=== PATIENT | female | born 1975 | race Caucasian/White ===

== ENCOUNTER 2021-02-01 12:37 | Emergency (ER) | payer OTHER, SELFPAY ==
--- NOTE | ~2021-02-01 | XR_ITS ---
EXAMINATION: XR HAND, LEFT CLINICAL INFORMATION: Left index laceration/trauma. COMPARISON: None TECHNIQUE: PA, lateral, and oblique views of the left hand. FINDINGS: There is soft tissue edema and overlying external covering material at about the second digit. There is no evidence of acute fractures or malalignment. Joint spaces are in anatomic. XR/XR hand LT min 3V IMPRESSION: No acute fractures or malalignment.
[2021-02-01 13:35] VITALS: BP 125/60; PULSE 85; RESP 18; TEMP 36.5; O2SAT 98; BMI 28.0
[2021-02-01] MEDS: Ibuprofen 600 MG TABLET PO (13:39)
--- NOTE | 2021-02-01 15:17 | ED.WOUNDLAC ---
HPI - Wound/Laceration General Chief Complaint: Wound/Laceration Stated Complaint: FINGER LACERATION WORK RELATED Time Seen by Provider: 02/01/21 13:07 Source: patient Mode of arrival: ambulatory Limitations: no limitations History of Present Illness HPI narrative: Patient was at work cutting [employer] when she cut her left index finger. Patient is cook. Patient reports that she had tetanus shot about 3 months ago. Patient denies any other symptoms. Ibuprofen ordered in triage. Bleeding is under control. Related Data Previous Rx's Medication Instructions Recorded cephalexin 500 mg capsule 500 mg PO QID 5 Days #20 cap 02/01/21 ibuprofen 600 mg tablet 600 mg PO Q8H PRN #20 tab 02/01/21 Allergies Allergy/AdvReac Type Severity Reaction Status Date / Time acetaminophen Allergy Severe anaphylaxis Verified 02/01/21 13:35 bacitracin Allergy Unknown Verified 02/01/21 15:41 [From Neosporin ([id number])] codeine Allergy Rash Verified 02/01/21 13:35 neomycin Allergy Unknown Verified 02/01/21 15:41 [From Neosporin ([id number])] Penicillins Allergy Rash Verified 02/01/21 13:35 polymyxin B Allergy Unknown Verified 02/01/21 15:41 [From Neosporin ([id number])] Review of Systems Review of Systems: Constitutional : No Weight loss, No Fever, No Chills, No Night Sweats, No Fatigue, No Malaise ENT/Mouth : No Hearing loss, No Ear Pain, No Nasal Congestion, No Sinus Pain, No Hoarseness, No sore throat, No Rhinorrhea, No Swallowing Difficulty Eyes: No Eye Pain, No Swelling, No Redness, No Foreign Body, No Discharge, No Vision Changes Cardiovascular : No Chest Pain, No SOB, No Dyspnea on Exertion, No Orthopnea, No Edema, No Palpitations Respiratory : No Cough, No Sputum, No Wheezing, No Smoke Exposure, No Dyspnea Gastrointestinal : No Nausea, No Vomiting, No Diarrhea, No Constipation, No abdominal Pain, No Hematochezia, No Melena Genitourinary : no irregular bleeding, No Dysuria, No Urinary Frequency, No Hematuria, No Urinary Incontinence, No Urgency, No Flank Pain, No Urinary Flow Changes, No Hesitancy Musculoskeletal : No joint pain, No Myalgias, No Joint Swelling Skin : No Skin Lesions, No rash, laceration to left index finger Neuro : No Weakness, No Numbness, No Paresthesias, No Loss of Consciousness, No Dizziness, No Headache Yes all other systems are reviewed and are negative PMFSH Social History Social History Advance Directives: No Advance Directives Information Provided: No Patient : No Physical Exam Vital Signs: Vital Signs: Last Vital Signs Temp 97.7 F 02/01/21 13:35 Pulse 85 02/01/21 13:35 Resp 18 02/01/21 15:35 BP 125/60 02/01/21 13:35 Pulse Ox 98 02/01/21 13:35 Body Mass Index 28.0 Const: General: healthy appearing, no acute distress and well developed Nutritional Appearance: well nourished Orientation/consciousness: patient oriented x3 Neck: Neck: Yes normal visual inspection, Yes full ROM and Yes trachea midline Thyroid: Thyroid normal Resp: Auscultation: clear to auscultation bilaterally Cardio: Rate: regular rate Rhythm: regular rhythm GI: Inspection: Yes normal to inspection and No distended Palpation (GI): No hepatosplenomegaly present Auscultation: normal bowel sounds Skin: General skin exam: elasticity normal, turgor normal, dry skin and other (Left index finger laceration) Neuro: General: patient oriented x3 Extrem: Other: Right upper extremity: normal to inspection, full ROM and normal capillary refill Left upper extremity: full ROM and hand (Left index finger laceration) Course Course Course Narrative: 45-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 Patient reports that she had a tetanus vaccine 3 months ago. Patient denies any other symptoms and her bleeding is under control. Patient has allergies to codeine and was already medicated in triage with ibuprofen. I will scan her make sure that she does not have bone injury. Because there is no way of suture will dress her with impregnated gauze iodoform. Will medicate her with Keflex prophylactically. Patient is agreeable to this. Reevaluation(s) Reevaluation #1: X-ray is negative for any fracture or any damage to the bone. Iodoform dressing applied. First dose of Keflex prophylactically given to patient. She will be sent home with antibiotics for 5 days prophylaxis. Patient was instructed to return to emergency department if she will notice any symptoms of infection. Discharge Plan Discharge Clinical Impression: Laceration, Avulsion of skin Patient Disposition: Home, Self-Care Instructions: Finger Laceration (ED) Additional Instructions: You worse seen here today for laceration of your index finger. Your x-ray shows no damage to the bone. Make sure you keep this area moist with the dressing that was provided to you. Please monitor for any signs and symptoms of infection. You are given Keflex prophylactically. Please follow-up with your PCP on as needed basis. May return to emergency department if your symptoms will get worse or if you will experience any additional concerning symptoms Prescriptions: New ibuprofen 600 mg tablet 600 mg PO Q8H PRN (Reason: pain) Qty: 20 RF: 0 cephalexin 500 mg capsule 500 mg PO QID 5 Days Qty: 20 RF: 0 Referrals: Alexsandra Ramirez MD [Primary Care Provider] - 2 days Stand Alone Forms: Work/School Release
[2021-02-01 15:35] VITALS: RESP 18
[2021-02-01] MEDS: cephALEXin 500 MG CAPSULE PO (16:03)
== END 2021-02-01 16:17 | disposition home or self-care (01) ==
PROVIDERS: Emergency Provider Emergency Medicine; PCP Pediatrics
DX: S61.211A Laceration without foreign body of left index finger without damage to nail, initial encounter (principal); M79.645 Pain in left finger(s); W26.0XXA Contact with knife, initial encounter; Y93.G3 Activity, cooking and baking; Y92.9 Unspecified place or not applicable; Y99.0 Civilian activity done for income or pay; Z79.899 Other long term (current) drug therapy
CPT/HCPCS: 73130; 99283

== ENCOUNTER 2021-02-07 15:31 | Emergency (ER) | payer OTHER, SELFPAY ==
[2021-02-07 15:53] VITALS: BP 126/83; PULSE 108; RESP 18; TEMP 36.8; O2SAT 100; BMI 28.0
--- NOTE | 2021-02-07 16:26 | ED.WOUNDLAC ---
HPI - Wound/Laceration General Chief Complaint: Wound/Laceration Stated Complaint: finger infection (work) Time Seen by Provider: 02/07/21 16:26 Source: patient Mode of arrival: ambulatory Limitations: no limitations History of Present Illness HPI narrative: Patient had left index finger partial amputation about 1 week ago started on Keflex not complaining of slight pus discharge at the tip with pain tip amputation is just involving few mm of the tip not involving the bone, had slightly redness around the wound no fever no chills patient had x-ray on 02/01 which showed no involvement of bone Related Data Previous Rx's Medication Instructions Recorded cephalexin 500 mg capsule 500 mg PO QID 5 Days #20 cap 02/01/21 ibuprofen 600 mg tablet 600 mg PO Q8H PRN #20 tab 02/01/21 doxycycline hyclate 100 mg tablet 100 mg PO BID #20 tab 02/07/21 Allergies Allergy/AdvReac Type Severity Reaction Status Date / Time acetaminophen Allergy Severe anaphylaxis Verified 02/01/21 13:35 bacitracin Allergy Unknown Verified 02/01/21 15:41 [From Neosporin ([id number])] codeine Allergy Rash Verified 02/01/21 13:35 neomycin Allergy Unknown Verified 02/01/21 15:41 [From Neosporin ([id number])] Penicillins Allergy Rash Verified 02/01/21 13:35 polymyxin B Allergy Unknown Verified 02/01/21 15:41 [From Neosporin ([id number])] Review of Systems Review of Systems: Yes all other systems are reviewed and are negative PMFSH Social History Social History Advance Directives: No Advance Directives Information Provided: No Patient : No Physical Exam Vital Signs: Vital Signs: Last Vital Signs Temp 98.2 F 02/07/21 15:53 Pulse 108 H 02/07/21 15:53 Resp 18 02/07/21 15:53 BP 126/83 02/07/21 15:53 Pulse Ox 100 02/07/21 15:53 Body Mass Index 28.0 Extrem: Hand/finger images: 1. Scab on the tip of the left index finger with serous discharge no significant surrounding erythema MDM - Wound/Laceration MDM Narrative Medical decision making narrative: Slightly infected partial amputation of left index finger will start on done on doxycycline advised patient to use Bactroban twice daily local care Discharge Plan Discharge Clinical Impression: Wound cellulitis Patient Disposition: Home, Self-Care Instructions: Acute Wounds (ED) Additional Instructions: Local care as advised take antibiotic for another 7 days Prescriptions: New doxycycline hyclate 100 mg tablet 100 mg PO BID Qty: 20 RF: 0 No Action ibuprofen 600 mg tablet 600 mg PO Q8H PRN (Reason: pain) Qty: 20 RF: 0 cephalexin 500 mg capsule 500 mg PO QID 5 Days Qty: 20 RF: 0
== END 2021-02-07 16:41 | disposition home or self-care (01) ==
PROVIDERS: Emergency Provider Internal Medicine; PCP Pediatrics
DX: L03.012 Cellulitis of left finger (principal); Z79.899 Other long term (current) drug therapy
CPT/HCPCS: 99283